=== PATIENT | male | born 1970 | race Hispanic/Latino ===

== ENCOUNTER 2017-06-30 14:32 | Outpatient (CLI) | payer OTHER ==
--- NOTE | 2017-06-30 16:22 | XRay Report ---
XRAY LEFT SHOULDER 2 VIEWS: 06/30/17 14:32:00 CLINICAL: Pain FINDINGS: No fracture or dislocation. Normal glenohumeral joint. Mild AC joint arthritis. The soft tissues are normal. IMPRESSION: Mild acromioclavicular joint arthritis and otherwise normal.
== END 2017-06-30 14:33 | disposition home or self-care (01) ==
LOC: SPVIMAG 14:32
PROVIDERS: ATTEND Orthopaedic Surgery
DX: M19.012 Primary osteoarthritis, left shoulder (principal)